=== PATIENT | female | born 1970 | race Caucasian/White ===

== ENCOUNTER 2017-05-03 18:30 | Emergency (ER) | payer OTHER ==
[~2017-05-03] VITALS: Ht 165.1 cm; Wt 78.5 kg
[2017-05-03 18:33] VITALS: Ht 165.1 cm; Wt 78.5 kg
[2017-05-03] MEDS ORDERED: IBUP-1542 PO (18:54)
[2017-05-03] MEDS ORDERED: AMO500 PO (18:54)
--- NOTE | 2017-05-03 19:31 | ERD ---
ER Documentation Chief Complaint Date/Time DATE: 05/03/17 TIME: 19:30 Chief Complaint sore throat x 2 weeks, cough for 3 weeks HPI Patient is a 46-year-old female with no medical problems who presents with a sore throat. The patient said that the pain is worse at night and she has had some trouble swallowing. She has headache. She has also had a cough with phlegm. The symptoms have been there for the past 2 weeks. She denies fevers. She took "triamtopene" antibiotic from [facility]. Upon review of old medical records this is the patient's first visit to the emergency department. ROS All systems reviewed and are negative except as per history of present illness. Medications Home Meds Active Scripts Amoxicillin* (Amoxicillin*) 500 Mg Cap, 500 MG PO TID for 10 Days, CAP Prov:MANINDER PARRA MD 05/03/17 Ibuprofen* (Motrin*) 600 Mg Tab, 600 MG PO Q8, #30 TAB Prov:MANINDER PARRA MD 05/03/17 PMhx/Soc Medical and Surgical Hx: pt denies Surgical Hx History of Surgery: No Anesthesia Reaction: No Hx Neurological Disorder: No Hx Respiratory Disorders: No Hx Cardiac Disorders: No Hx Psychiatric Problems: No Hx Miscellaneous Medical Probl: Yes (chronic back pain) Hx Alcohol Use: No Hx Substance Use: No Hx Tobacco Use: No Smoking Status: Never smoker FmHx Family History: diabetes Physical Exam Vitals Vital Signs Date Time Temp Pulse Resp B/P Pulse Ox O2 Delivery O2 Flow Rate FiO2 05/03/17 18:33 98.8 96 20 121/74 99 Physical Exam Const: No acute distress Head: Atraumatic Eyes: Normal Conjunctiva ENT: Normal External Ears, Nose and Mouth. Erythematous oropharynx without signs of peritonsillar abscess Neck: Full range of motion..~ No meningismus. No stridor over the neck Resp: Clear to auscultation bilaterally Cardio: Regular rate and rhythm, no murmurs Abd: Soft, non tender, non distended. Normal bowel sounds Skin: No petechiae or rashes Back: No midline or flank tenderness Ext: No cyanosis, or edema Neur: Awake and alert Psych: Normal Mood and Affect Procedures/MDM Patient is a 46-year-old female who presents with appears to be an acute pharyngitis. She also may have a bronchitis. The patient will be given amoxicillin for 10 day course. She will be given ibuprofen for systematic relief. At this point I doubt peritonsillar abscess, retropharyngeal abscess, or epiglottitis. I believe outpatient management is appropriate. The patient can follow-up with the local clinics within 24-48 hours for reevaluation. She can return sooner for any worsening symptoms. Departure Diagnosis: Primary Impression: Pharyngitis Pharyngitis/tonsillitis etiology: unspecified etiology Qualified Code: J02.9 - Pharyngitis, unspecified etiology Additional Impression: Sore throat Condition: Fair Patient Instructions: Pharyngitis, Strep (Presumed) [facility] Usted se garzon hecho un examen mdico de control que le indica que no est en eliz condicin que requiera tratamiento urgente en el Departamento de Emergencia. Un estudio ms profundo y el tratamiento de esteban condicin pueden esperar sin ningn riesgo hasta que usted sea atendida/o en el consultorio de esteban mdico o eliz cl sarah. Es responsabilidad suya arreglar eliz [place] para el seguimiento del chelly. MANEJO DE CONDICIONES NO URGENTES EN EL FUTURO 1) Si usted tiene un mdico de atencin primaria: Usted debera llamar a esteban mdico de atencin primaria antes de venir al departamento de emergencia. Despus de las horas de consultorio, esteban doctor o esteban asociado/a est disponible por telfono. El mdico o enfermero de kati en el servicio telefnico puede asesorarle por navdeep medio para atender el problema, o chelly contrario se puede programar eliz [place]. 2) Si usted no tiene un mdico de atencin primaria: Llame al mdico o clnica de referencia que aparece abajo janey las horas de consultorio para hacer eliz [place] para que le vean. CLINICAS: [facility] [phone] [facility] [phone] [facility] [phone] [place] [id number] [phone] [facility] [phone] [address] [facility]. [phone] [address] Additional Instructions: Llame al doctor MAANA y grupo eliz [place] PARA DENTRO DE 1-2 WHEELER.Dgale a la secretaria que nosotros le instruimos hacer esta [place].Avise o llame si esteban condicin se empeora antes de la [place]. Regresa aqui si peor o no mejor. MANINDER PARRA MD May 03, 2017 19:31
== END 2017-05-03 19:28 | disposition home or self-care (01) ==
LOC: FTE 18:30
DX: J02.9 Acute pharyngitis, unspecified (principal)
CPT/HCPCS: 99283